=== PATIENT | male | born 1965 | race Caucasian/White ===

== ENCOUNTER → 2016-10-23 | Outpatient (CLI) | payer OTHER ==
[~2016-10-23] MED LIST: ALLO300T2 PO; ATOR-24 PO; CLOP1TAB15 PO; LEVO1TAB35 PO; LISI-526 PO; PREG1CAP70 PO; WLLXL300 PO
[2016-10-23 15:09] LABS: ALT/SGPT 50 U/L (12-78); BLOOD UREA NITROGEN 12 mg/dl (7-18); BUN/CREATININE RATIO 12.9 (10-20); CALCIUM 8.8 mg/dl (8.5-10.1); CARBON DIOXIDE 28 mmol/L (21-32); CHLORIDE 106 mmol/L (98-107); GLUCOSE 81 mg/dl (70-99); SODIUM 141 mmol/L (136-145)
[2016-10-23 15:12] LABS: CHOLESTEROL 182 mg/dl (0-200); CHOLESTEROL/HDL RATIO 5.5; HDL CHOLESTEROL 33 mg/dl; LDL CHOLESTEROL CALCULATED 119 mg/dl; TRIGLYCERIDES 151 mg/dl (0-150); VERY LOW DENSITY LIPOPROT CALC 30 mg/dl
== END | disposition home or self-care (01) ==
LOC: C.LABMFLN 09:12
PROVIDERS: ATTEND Family Medicine
DX: E78.00 Pure hypercholesterolemia, unspecified (principal); I10 Essential (primary) hypertension

== ENCOUNTER 2016-11-30 16:56 | Emergency (ER) | payer OTHER ==
[~2016-11-30] VITALS: Ht 175.3 cm; Wt 129.4 kg
[2016-11-30 17:11] VITALS: TEMP 36.5; Ht 175.3 cm; Wt 129.4 kg
[2016-11-30] MEDS ORDERED: OPTIRAY 320 IV PRN (17:30)
[2016-11-30 17:43] LABS: BASO % 0.5 %; BASO ABS # 0.05 K/uL (0-0.2); COMPLETE YES; EOS % 3.3 %; HEMATOCRIT 45.7 % (42-52); IG% 0.8 %; LYMPH % 31.7 %; LYMPH ABS # 3.22 K/uL (1.2-3.4); MEAN CORPUSCULAR HGB CONC 33.7 g/dl (32-36); NEUT % 55.7 %; PLATELET COUNT 282 K/uL (130-400); RED BLOOD COUNT 4.97 M/uL (4.7-6.1); WHITE BLOOD COUNT 10.17 K/uL (4.8-10.8)
[2016-11-30] MEDS ORDERED: ALLO300T2 PO (17:54)
[2016-11-30] MEDS ORDERED: CLOP1TAB15 PO (17:54)
[2016-11-30] MEDS ORDERED: ATOR-24 PO (17:54)
[2016-11-30] MEDS ORDERED: LISI-526 PO (17:54)
[2016-11-30] MEDS ORDERED: PREG1CAP70 PO (17:54)
[2016-11-30] MEDS ORDERED: WLLXL300 PO (17:55)
[2016-11-30 18:02] LABS: BUN/CREATININE RATIO 15.6 (10-20); CALCIUM 9.4 mg/dl (8.5-10.1); CREATININE 0.89 mg/dl (0.60-1.40); POTASSIUM 4.4 mmol/L (3.5-5.1)
[2016-11-30 18:12] LABS: ALB/GLOB RATIO 0.8 (0.9-2); THYROID STIMULATING HORMONE 3.11 uIu/ml (0.300-4.500)
--- NOTE | 2016-11-30 18:42 | DIAGNOSTIC IMAGING REPORT ---
CT SCAN OF THE NECK WITH IV CONTRAST CLINICAL HISTORY: Throat pain. Dysphagia of 2 months duration. COMPARISON STUDY: No priors. TECHNIQUE: Following the IV administration of 119 cc of Optiray 320, CT scan of the soft tissues of the neck was performed from the skull base to the upper chest. Images are reviewed in the axial, sagittal, and coronal planes. IV contrast was administered without complication. CT DOSE: 1033.00 mGy.cm FINDINGS: Pharynx: The nasopharynx, oropharynx, and laryngeal pharynx are normal in appearance. The pharyngeal airway is widely patent. There is no evidence of mass lesion. The vocal cords are symmetric. The parapharyngeal fat is well maintained. The prevertebral/retropharyngeal soft tissues are within normal limits. Small calcified tonsilliths are observed. The epiglottis is normal. Lymphadenopathy: No cervical lymphadenopathy is seen Thyroid: Normal in size and attenuation. Salivary glands: The parotid and submandibular glands are within normal limits. Brain parenchyma: The visualized brain parenchyma at the skull base is normal in appearance. Vascular structures: There is atherosclerotic calcification of the visualized thoracic aorta. The arch demonstrates bovine variant anatomy. The carotid arteries and jugular veins are widely patent bilaterally. Skeletal structures: Imaged portions of the calvarium at the skull base are within normal limits. The cervical spine appears intact. Mild cervical spondylosis is observed. Sinuses and mastoids: A retention cyst is noted in the left maxillary antrum. The remaining visualized paranasal sinuses are clear. The mastoid air cells are well pneumatized. Lung apices: Emphysematous change is identified in the upper lungs. The upper lobe lung parenchyma is clear as imaged. There are scattered subcentimeter mediastinal lymph nodes. IMPRESSION: 1. No acute abnormality is identified. 2. Emphysema. Electronically signed by: Kyree Gomez M.D. 11/30/2016 6:40 PM Dictated Date/Time: 11/30/2016 6:31 PM
[2016-11-30 18:59] VITALS: BP 162/90; PULSE 76; O2SAT 95
--- NOTE | 2016-11-30 23:32 | EMERGENCY ROOM VISIT NOTE ---
History First contact with patient: 17:15 Chief Complaint: THROAT PAIN/INJURY Stated Complaint: HARD/HURTS SWALLOWING History of Present Illness The patient is a 50 year old male who presents to the Emergency Room with complaints of pain with swallowing for the past 2 months. The patient does not report injury or trauma. He has not had fever or chills. The patient reports a history of extensive tobacco use, specifically smoking, although he did stop a few months ago. Additionally the patient does wear a C Pap at night, which uses humidified air and oxygen. The patient states that eating does exacerbate his symptoms. He did follow with his primary care physician: But states that no testing was done. The patient rates his discomfort a 5/10 and has not taken anything [id number] for his discomfort. Review of Systems More than 10 systems were reviewed and otherwise negative with the exception of history of present illness. Past Medical/Surgical History History of hypertension, dyslipidemia, gout, and stent in his leg Family History No pertinent family history Social History Smoking Status: Current Every Day Smoker Current/Historical Medications Scheduled Allopurinol (Zyloprim), 300 MG PO DAILY Atorvastatin (Lipitor), 40 MG PO QPM Bupropion HCl (Bupropion HCl Xl), 300 MG PO BID Clopidogrel (Plavix), 75 MG PO QPM Lisinopril (Prinivil), 30 MG PO DAILY Pregabalin (Lyrica), 150 MG PO TID Allergies Coded Allergies: NSAIDs (Unverified Allergy, Unknown, UNKNOWN, 11/30/16) Penicillins (Unverified Allergy, Unknown, UNKNOWN, 11/30/16) Physical Exam Vital Signs Date Time Temp Pulse Resp B/P Pulse Ox O2 Delivery O2 Flow Rate FiO2 11/30/16 18:59 76 18 162/90 95 Room Air 11/30/16 17:11 36.5 70 20 152/79 95 Room Air Pain Rating (0-10): 0 Physical Exam VITALS: Vitals are noted on the nurse's note and reviewed by myself. Vital signs stable. GENERAL: Well-developed, well-nourished, white male, who is in no acute distress and resting comfortably. Patient is cooperative with the examination. HEAD: Normocephalic atraumatic. EARS: External ear normal. External auditory canals clear, tympanic membranes pearly plummer without erythema or effusion bilaterally. EYES: Pupils equal round and reactive to light and accommodation. Conjunctivae without injection, sclerae without icterus. Extraocular movements intact. NOSE: Patent, turbinates without inflammation or discharge. MOUTH: Mucous membranes moist. Tonsils are not enlarged. Pharynx without erythema, blood, or exudate. Uvula midline. Airway patent. NECK: Supple without nuchal rigidity. No lymphadenopathy. No thyromegaly. Cervical spine is nontender. HEART: Regular rate and rhythm without murmurs gallops or rubs. LUNGS: Clear to auscultation bilaterally without wheezes, rales or rhonchi. No retractions or accessory muscle use. Medical Decision & Procedures ER Provider Diagnostic Interpretation: CT SCAN OF THE NECK WITH IV CONTRAST CLINICAL HISTORY: Throat pain. Dysphagia of 2 months duration. COMPARISON STUDY: No priors. TECHNIQUE: Following the IV administration of 119 cc of Optiray 320, CT scan of the soft tissues of the neck was performed from the skull base to the upper chest. Images are reviewed in the axial, sagittal, and coronal planes. IV contrast was administered without complication. CT DOSE: 1033.00 mGy.cm FINDINGS: Pharynx: The nasopharynx, oropharynx, and laryngeal pharynx are normal in appearance. The pharyngeal airway is widely patent. There is no evidence of mass lesion. The vocal cords are symmetric. The parapharyngeal fat is well maintained. The prevertebral/retropharyngeal soft tissues are within normal limits. Small calcified tonsilliths are observed. The epiglottis is normal. Lymphadenopathy: No cervical lymphadenopathy is seen Thyroid: Normal in size and attenuation. Salivary glands: The parotid and submandibular glands are within normal limits. Brain parenchyma: The visualized brain parenchyma at the skull base is normal in appearance. Vascular structures: There is atherosclerotic calcification of the visualized thoracic aorta. The arch demonstrates bovine variant anatomy. The carotid arteries and jugular veins are widely patent bilaterally. Skeletal structures: Imaged portions of the calvarium at the skull base are within normal limits. The cervical spine appears intact. Mild cervical spondylosis is observed. Sinuses and mastoids: A retention cyst is noted in the left maxillary antrum. The remaining visualized paranasal sinuses are clear. The mastoid air cells are well pneumatized. Lung apices: Emphysematous change is identified in the upper lungs. The upper lobe lung parenchyma is clear as imaged. There are scattered subcentimeter mediastinal lymph nodes. IMPRESSION: 1. No acute abnormality is identified. 2. Emphysema. Laboratory Results 11/30/16 17:29 Red Blood Count 4.97, Mean Corpuscular Volume 92.0, Mean Corpuscular Hemoglobin 31.0, Mean Corpuscular Hemoglobin Concent 33.7, Mean Platelet Volume 10.0, Neutrophils (%) (Auto) 55.7, Lymphocytes (%) (Auto) 31.7, Monocytes (%) (Auto) 8.0, Eosinophils (%) (Auto) 3.3, Basophils (%) (Auto) 0.5, Neutrophils # (Auto) 5.67, Lymphocytes # (Auto) 3.22, Monocytes # (Auto) 0.81, Eosinophils # (Auto) 0.34, Basophils # (Auto) 0.05 11/30/16 17:29 Test 11/30/16 17:29 White Blood Count 10.17 K/uL (4.8-10.8) Red Blood Count 4.97 M/uL (4.7-6.1) Hemoglobin 15.4 g/dL (14.0-18.0) Hematocrit 45.7 % (42-52) Mean Corpuscular Volume 92.0 fL (80-100) Mean Corpuscular Hemoglobin 31.0 pg (25-34) Mean Corpuscular Hemoglobin Concent 33.7 g/dl (32-36) Platelet Count 282 K/uL (130-400) Mean Platelet Volume 10.0 fL (7.4-10.4) Neutrophils (%) (Auto) 55.7 % Lymphocytes (%) (Auto) 31.7 % Monocytes (%) (Auto) 8.0 % Eosinophils (%) (Auto) 3.3 % Basophils (%) (Auto) 0.5 % Neutrophils # (Auto) 5.67 K/uL (1.4-6.5) Lymphocytes # (Auto) 3.22 K/uL (1.2-3.4) Monocytes # (Auto) 0.81 K/uL (0.11-0.59) Eosinophils # (Auto) 0.34 K/uL (0-0.5) Basophils # (Auto) 0.05 K/uL (0-0.2) RDW Standard Deviation 47.6 fL (36.4-46.3) RDW Coefficient of Variation 14.1 % (11.5-14.5) Immature Granulocyte % (Auto) 0.8 % Immature Granulocyte # (Auto) 0.08 K/uL (0.00-0.02) Anion Gap 7.0 mmol/L (3-11) Est Creatinine Clear Calc Drug Dose 130.8 ml/min Estimated GFR () 114.7 Estimated GFR (Non- 99.0 BUN/Creatinine Ratio 15.6 (10-20) Calcium Level 9.4 mg/dl (8.5-10.1) Total Bilirubin 0.3 mg/dl (0.2-1) Aspartate Amino Transf (AST/SGOT) 39 U/L (15-37) Alanine Aminotransferase (ALT/SGPT) 48 U/L (12-78) Alkaline Phosphatase 103 U/L (45-117) Total Protein 8.1 gm/dl (6.4-8.2) Albumin 3.7 gm/dl (3.4-5.0) Globulin 4.4 gm/dl (2.5-4.0) Albumin/Globulin Ratio 0.8 (0.9-2) Thyroid Stimulating Hormone (TSH) 3.110 uIu/ml (0.300-4.500) Free Thyroxine 0.80 ng/dl (0.80-1.60) Free Triiodothyronine 3.27 pg/ml (2.30-4.20) Monoscreen NEG (NEG) ED Course Physical exam and history were performed. Nursing notes and EMR were reviewed. Patient appears to have pain with swallowing over the past 2 months. He states his symptoms are worse over the past few days, prompting his presentation to the department. The patient does have an extensive tobacco use history, and is worried that he may have cancer. IV access was established and labs were obtained. Rapid strep was negative. CT scan was performed. The patient's blood work is as above and was reviewed. He does not have a significant elevated white blood cell count, gross anemia, bandemia, or significant electrolyte imbalance. His Monospot is negative. TSH, T3, and T4 are within normal limits. The patient's CT scan is as above and does not show acute finding such as mass or appreciable lesion. Overall I do feel the patient is stable for discharge home. His symptoms could certainly be related to his sleep apnea, but I cannot rule out an esophageal issue here in the emergency department. I do feel the patient should be followed by GI for upper endoscopy. I will provide him resources to help perform this. The patient may wish to contact his PCP, who may help with appropriate referrals. The patient was otherwise invited back to the ER with any new, worsening, or concerning symptoms. The chart was completed utilizing [employer] Speech Voice Recognition Software. Grammatical errors, random word insertions, pronoun errors, and incomplete sentences are an occasional consequence of this system due to software limitations, ambient noise, and hardware issues. Any formal questions or concerns about the content, text, or information contained within the body of this dictation should be directly addressed to the provider for clarification. . Medical Decision Differential diagnosis includes, but is not limited to: Pharyngitis, infection, foreign body, cancer, esophagitis, thrush, and others Impression Primary Impression: Odynophagia Departure Information Dispostion Home / Self-Care Condition GOOD Referrals Papa Caldera MD Forms HOME CARE DOCUMENTATION FORM, IMPORTANT VISIT INFORMATION Patient Instructions My [facility] Additional Instructions You were seen and evaluated today on an emergency basis only. This is not a substitute for, or an effort to provide, complete comprehensive medical care. It is not possible to recognize and treat all injuries or illnesses in a single emergency department visit. For this reason it is recommended that you followup with your primary physician this week for ongoing care and evaluation. We also recommend that you follow with gastroenterology for further care and management. We have provided you the information for [facility] as a convenience. You are welcome to return to the emergency department anytime with new, worsening, or concerning symptoms.
== END 2016-11-30 19:01 | disposition home or self-care (01) ==
LOC: C.EDB 16:58 → C.EDD 19:01
DX: R13.10 Dysphagia, unspecified (principal); I10 Essential (primary) hypertension; E78.5 Hyperlipidemia, unspecified; M10.9 Gout, unspecified; F17.200 Nicotine dependence, unspecified, uncomplicated; Z79.899 Other long term (current) drug therapy; Z88.0 Allergy status to penicillin; Z88.8 Allergy status to other drugs, medicaments and biological substances

== ENCOUNTER → 2017-06-06 | Outpatient (CLI) | payer OTHER ==
[2017-06-06 13:22] LABS: ALT/SGPT 46 U/L (12-78); BLOOD UREA NITROGEN 17 mg/dl (7-18); BUN/CREATININE RATIO 20.1 (10-20); CARBON DIOXIDE 27 mmol/L (21-32); CHLORIDE 104 mmol/L (98-107); CREATININE 0.86 mg/dl (0.60-1.40); GLUCOSE 104 mg/dl (70-99); POTASSIUM 3.6 mmol/L (3.5-5.1); SODIUM 138 mmol/L (136-145)
== END | disposition home or self-care (01) ==
LOC: C.LABMFLN 08:05
PROVIDERS: ATTEND Family Medicine
DX: E78.00 Pure hypercholesterolemia, unspecified (principal); I10 Essential (primary) hypertension

== ENCOUNTER 2017-06-11 20:22 | Emergency (ER) | payer OTHER ==
[~2017-06-11] VITALS: Ht 175.3 cm; Wt 133.5 kg
[~2017-06-11 20:22] MED LIST changes: -LEVO1TAB35 PO
[2017-06-11 20:44] VITALS: TEMP 36.8
[2017-06-11] MEDS ORDERED: ALBUT/IPRATROP 3MG/0.5MG NEB 3 ML VIAL INH STA (21:35)
[2017-06-11] MEDS ORDERED: METHYLPREDNISOLONE 125 MG VIAL IV STA (21:35)
[2017-06-11 21:48] VITALS: O2SAT 94; Ht 175.3 cm; Wt 133.5 kg
[2017-06-11] MEDS ORDERED: OPTIRAY 320 IV PRN (22:00)
[2017-06-11 22:33] LABS: BASO % 0.4 %; BASO ABS # 0.05 K/uL (0-0.2); COMPLETE YES; EOS % 2.5 %; HEMATOCRIT 47.1 % (42-52); IG% 0.8 %; LYMPH % 24.2 %; LYMPH ABS # 3.32 K/uL (1.2-3.4); MEAN CELL VOLUME 91.8 fL (80-100); MEAN CORPUSCULAR HEMOGLOBIN 31.4 pg (25-34); MEAN CORPUSCULAR HGB CONC 34.2 g/dl (32-36); MEAN PLATELET VOLUME 10.1 fL (7.4-10.4); MONO % 6.8 %; NEUT % 65.3 %; PLATELET COUNT 269 K/uL (130-400); RED BLOOD COUNT 5.13 M/uL (4.7-6.1); WHITE BLOOD COUNT 13.73 K/uL (4.8-10.8)
[2017-06-11 22:44] LABS: PARTIAL THROMBOPLASTIN RATIO 1.5; PROTHROMBIN TIME (PATIENT) 10.7 SECONDS (9.0-12.0)
[2017-06-11 22:50] LABS: CALCIUM 9.4 mg/dl (8.5-10.1); CREATININE 0.96 mg/dl (0.60-1.40); POTASSIUM 3.7 mmol/L (3.5-5.1)
[2017-06-11 22:55] LABS: ALB/GLOB RATIO 0.8 (0.9-2)
--- NOTE | 2017-06-11 22:57 | DIAGNOSTIC IMAGING REPORT ---
SINGLE VIEW CHEST CLINICAL HISTORY: Cough and fever. FINDINGS: An AP, portable, upright chest radiograph is obtained. No prior studies are available for comparison at the time of dictation. The examination is degraded by portable technique and patient rotation. The heart is enlarged. The pulmonary vasculature is noncongested. There is patchy airspace consolidation at the left lung base. Minimal opacities are also suggested at the right lung base. The upper lobes are clear. No large pleural effusion or pneumothorax is seen. The bony thorax is grossly intact. IMPRESSION: 1. Cardiomegaly without radiographic evidence of congestive failure. 2. There is patchy airspace consolidation at the left lung base concerning for pneumonia. Clinical correlation will be required and radiographic follow-up to resolution is recommended. 3. Airspace opacities are also questioned at the right lung base. Electronically signed by: Kyree Gomez M.D. 06/11/2017 10:56 PM Dictated Date/Time: 06/11/2017 10:55 PM
[2017-06-11] MEDS ORDERED: LEVAQUIN 750MG / 150ML D5W IV STA (23:18)
[2017-06-11 23:51] LABS: INFLUENZA A PCR Neg for Influ A (NEG); INFLUENZA B PCR Neg for Influ B (NEG)
[2017-06-12] MEDS ORDERED: ALBUTEROL HFA 8 GM INHALER INH STA (00:23)
--- NOTE | 2017-06-12 01:33 | EMERGENCY ROOM VISIT NOTE ---
ED Visit Note First contact with patient: 21:23 Pt seen and examined at bedside. Patient aware of all results. No hypoxia noted and no increased WOB. Aware of need for close follow-up, symptoms to watch return for, use of antibiotics, he verbalized understanding was agreeable with plan.
[2017-06-12] MEDS ORDERED: LEVO1TAB35 PO (01:48)
[2017-06-12 02:10] VITALS: BP 150/75; PULSE 86; O2SAT 95
--- NOTE | 2017-06-12 06:48 | DIAGNOSTIC IMAGING REPORT ---
CT SOFT TISSUE NECK WITH CT DOSE: 778.79 mGy.cm CLINICAL HISTORY: left sided facial pain/fever TECHNIQUE: Helical images were acquired during intravenous administration of 94 cc of Optiray 320. A dose lowering technique was utilized adhering to the principles of ALARA. COMPARISON STUDY: 11/30/2016 FINDINGS: The visualized portions of the lung apices are unremarkable. No thyroid masses are visualized. No salivary gland masses are visualized. There are no pathologically enlarged cervical lymph nodes. No necrotic nodes are evident. There are no fluid collections suspicious for abscess. There is no evidence of airway compromise. There is nonspecific epiglottic thickening. Direct visualization might be considered in follow-up. There is a right maxillary molar dental apical abscess IMPRESSION: 1. No evidence of soft tissue abscess 2. Right maxillary molar dental apical abscess. Nonemergent dental consultation is recommended 3. Nonspecific epiglottic thickening. Direct visualization might be considered in follow-up. Electronically signed by: Omar Matos M.D. 06/12/2017 6:47 AM Dictated Date/Time: 06/12/2017 6:41 AM
--- NOTE | 2017-06-12 07:31 | EMERGENCY ROOM VISIT NOTE ---
History First contact with patient: 21:23 Chief Complaint: INFECTION Stated Complaint: INFECTION IN MOUTH, JAW, EAR L SIDE Nursing Triage Summary: PT has infection to left jaw for about 1 month PT is on second round of clindamycin for this. PT states "I think it is getting worse, my throat is tight now." PT has SOB "sometimes when I cough" History of Present Illness The patient is a 51 year old male who presents to the Emergency Room with complaints of left-sided facial pain and swelling for the past 2 weeks that is steadily getting worse now complaining of fevers cough and shortness of breath. Patient continues to smoke. Pain currently 5 out of 10. Nothing makes it better or worse. It radiates to his ear. He described as throbbing. He saw a dentist and has been on clindamycin since May 20. He has an appointment next month with oral surgery. He saw his family care doctor Friday of this week and had blood work done. He is currently on clindamycin 300 mg 4 times a day. This was recently increased by the family care doctor. No temperature was taken. He took Tylenol earlier today. Patient denies chest pain, sore throat, headache, neck stiffness, abdominal pain, earache, vomiting, diarrhea. He had an EGD done earlier this year that was negative per patient. This is done at [facility]. He cannot recall the doctor's name. Review of Systems See HPI for pertinent positives & negatives. A total of 10 systems reviewed and were otherwise negative. Past Medical/Surgical History Hypertension, hyperlipidemia, sleep apnea, stent in leg Social History Smoking Status: Current Some Day Smoker Drug Use: none Current/Historical Medications Scheduled Allopurinol (Zyloprim), 300 MG PO DAILY Atorvastatin (Lipitor), 40 MG PO QPM Bupropion HCl (Bupropion HCl Xl), 300 MG PO BID Clopidogrel (Plavix), 75 MG PO QPM Levofloxacin (Levaquin), 750 MG PO DAILY Lisinopril (Prinivil), 30 MG PO DAILY Pregabalin (Lyrica), 150 MG PO TID Physical Exam Vital Signs Date Time Temp Pulse Resp B/P (MAP) Pulse Ox O2 Delivery O2 Flow Rate FiO2 06/12/17 02:10 86 20 150/75 95 06/12/17 01:30 81 20 162/85 95 Nasal Cannula 2.0 06/12/17 01:19 89 12/7/17 00:05 86 20 159/88 93 Room Air 06/11/17 22:34 88 17 169/86 92 Room Air 2.0 06/11/17 22:02 90 06/11/17 21:48 94 Nasal Cannula 2.0 06/11/17 20:44 36.8 93 18 176/91 92 Room Air Physical Exam VITALS: Vitals are noted on the nurse's note and reviewed by myself. Vital signs stable. GENERAL: White male coughing and spitting up phlegm that is yellow clear in nature in front of me, in no acute distress, nondiaphoretic, well-developed well -nourished. SKIN: The skin was without rashes, erythema, edema, or bruising. There is no tenting of the skin. Capillary reflex less than 2 seconds. HEAD: Normocephalic atraumatic. EARS: External auditory canals clear, tympanic membranes pearly plummer without erythema or effusion bilaterally. EYES: Pupils equal round and reactive to light and accommodation. Conjunctivae without injection, sclerae without icterus. Extraocular movements intact. NOSE: Patent, turbinates without inflammation or discharge. No sinus tenderness. MOUTH: Mucous membranes moist. Pharynx without erythema or exudate. Uvula midline. Airway patent. Tongue does not deviate. Dental exam: Multiple missing teeth with dental decay without palpable abscess. No Ludwigs angina NECK: Supple without nuchal rigidity. No lymphadenopathy. No thyromegaly. Cervical spine is nontender. No JVD. HEART: Regular rate and rhythm LUNGS: Mild diffuse end expiratory wheezes, without rales or rhonchi. No retractions or accessory muscle use. ABDOMEN: Positive bowel sounds x 4. Normal tympanic percussion. Soft, nontender, without masses or organomegaly. Lawson sign negative. No guarding or rebound tenderness. MUSCULOSKELETAL: No muscle atrophy, erythema, noted. NEURO: Patient was alert and oriented to person place and time. Normal sensation to light and sharp touch. No focal neurological deficits. Medical Decision & Procedures Laboratory Results 06/11/17 22:17 Red Blood Count 5.13, Mean Corpuscular Volume 91.8, Mean Corpuscular Hemoglobin 31.4, Mean Corpuscular Hemoglobin Concent 34.2, Mean Platelet Volume 10.1, Neutrophils (%) (Auto) 65.3, Lymphocytes (%) (Auto) 24.2, Monocytes (%) (Auto) 6.8, Eosinophils (%) (Auto) 2.5, Basophils (%) (Auto) 0.4, Neutrophils # (Auto) 8.97, Lymphocytes # (Auto) 3.32, Monocytes # (Auto) 0.93, Eosinophils # (Auto) 0.35, Basophils # (Auto) 0.05 06/11/17 22:17 Test 06/11/17 22:06 06/11/17 22:17 06/11/17 22:25 06/12/17 00:50 Influenza Type A (RT-PCR) Neg for Influ A (NEG) Influenza Type A Antigen Neg for Influ A (NEG) Influenza Type B Antigen Neg for Influ B (NEG) Influenza Type B (RT-PCR) Neg for Influ B (NEG) White Blood Count 13.73 K/uL (4.8-10.8) Red Blood Count 5.13 M/uL (4.7-6.1) Hemoglobin 16.1 g/dL (14.0-18.0) Hematocrit 47.1 % (42-52) Mean Corpuscular Volume 91.8 fL (80-100) Mean Corpuscular Hemoglobin 31.4 pg (25-34) Mean Corpuscular Hemoglobin Concent 34.2 g/dl (32-36) Platelet Count 269 K/uL (130-400) Mean Platelet Volume 10.1 fL (7.4-10.4) Neutrophils (%) (Auto) 65.3 % Lymphocytes (%) (Auto) 24.2 % Monocytes (%) (Auto) 6.8 % Eosinophils (%) (Auto) 2.5 % Basophils (%) (Auto) 0.4 % Neutrophils # (Auto) 8.97 K/uL (1.4-6.5) Lymphocytes # (Auto) 3.32 K/uL (1.2-3.4) Monocytes # (Auto) 0.93 K/uL (0.11-0.59) Eosinophils # (Auto) 0.35 K/uL (0-0.5) Basophils # (Auto) 0.05 K/uL (0-0.2) RDW Standard Deviation 45.4 fL (36.4-46.3) RDW Coefficient of Variation 13.5 % (11.5-14.5) Immature Granulocyte % (Auto) 0.8 % Immature Granulocyte # (Auto) 0.11 K/uL (0.00-0.02) Prothrombin Time 10.7 SECONDS (9.0-12.0) Prothromb Time International Ratio 1.0 (0.9-1.1) Activated Partial Thromboplast Time 39.3 SECONDS (21.0-31.0) Partial Thromboplastin Ratio 1.5 Anion Gap 6.0 mmol/L (3-11) Est Creatinine Clear Calc Drug Dose 122.0 ml/min Estimated GFR () 104.9 Estimated GFR (Non- 90.5 BUN/Creatinine Ratio 16.0 (10-20) Calcium Level 9.4 mg/dl (8.5-10.1) Total Bilirubin 0.6 mg/dl (0.2-1) Aspartate Amino Transf (AST/SGOT) 38 U/L (15-37) Alanine Aminotransferase (ALT/SGPT) 55 U/L (12-78) Alkaline Phosphatase 101 U/L (45-117) Troponin I 0.030 ng/ml (0-0.045) Total Protein 8.1 gm/dl (6.4-8.2) Albumin 3.6 gm/dl (3.4-5.0) Globulin 4.5 gm/dl (2.5-4.0) Albumin/Globulin Ratio 0.8 (0.9-2) Bedside Lactic Acid Venous 0.91 mmol/L (0.90-1.70) Bedside Troponin I < 0.030 ng/ml (0-0.045) Medications Administered Medications (Trade) Dose Ordered Sig/Kristen Route Start Time Stop Time Status Last Admin Dose Admin Albuterol/ Ipratropium (Duoneb) 3 ml NOW STAT INH 06/11/17 21:35 06/11/17 21:38 DC 06/11/17 22:03 3 ML Methylprednisolone Sodium Succinate (Solu-Medrol IV) 125 mg NOW STAT IV 06/11/17 21:35 06/11/17 21:38 DC 06/11/17 22:03 125 MG Levofloxacin (Levaquin / D5W) 750 mg NOW STAT IV 06/11/17 23:18 06/11/17 23:19 DC 06/12/17 00:04 750 MG Albuterol (Ventolin Hfa Inhaler) 2 puffs ONE STAT INH 06/12/17 00:23 06/12/17 00:24 DC 06/12/17 00:52 2 PUFFS ED Course Prior records/ancillary studies reviewed. Triage Nursing notes reviewed. The patient's history was concerning for respiratory difficulties with ongoing dental pain. Differential diagnosis: Etiologies such as dental infection, Derrek's angina, infections, reactive airway disease, pneumonia, pneumothorax, COPD, CHF, cardiac ischemia, pulmonary embolism, musculoskeletal, gastrointestinal, as well as others were entertained. Physical examination: As above. ER treatment provided: Nebulizer, Solu-Medrol On reassessment the patient felt better. Diagnostic interpretation by me: The electrocardiogram was normal sinus, normal intervals, no acute ST-T wave changes, rate of 84. Impression normal sinus rhythm interpreted by myself The labs revealed stable H&H. Leukocytosis. Negative lactic acid Negative flu. Negative troponin 2 Imaging studies: Chest x-ray SINGLE VIEW CHEST CLINICAL HISTORY: Cough and fever. FINDINGS: An AP, portable, upright chest radiograph is obtained. No prior studies are available for comparison at the time of dictation. The examination is degraded by portable technique and patient rotation. The heart is enlarged. The pulmonary vasculature is noncongested. There is patchy airspace consolidation at the left lung base. Minimal opacities are also suggested at the right lung base. The upper lobes are clear. No large pleural effusion or pneumothorax is seen. The bony thorax is grossly intact. IMPRESSION: 1. Cardiomegaly without radiographic evidence of congestive failure. 2. There is patchy airspace consolidation at the left lung base concerning for pneumonia. Clinical correlation will be required and radiographic follow-up to resolution is recommended. 3. Airspace opacities are also questioned at the right lung base. Electronically signed by: Kyree Gomez M.D. 06/11/2017 10:56 PM Dictated Date/Time: 06/11/2017 10:[address] negative for abscess per stat radiology This appears to be consistent with pneumonia. Patient's been on clindamycin for dental problems. He had no abscess on CT imaging. Patient's been coughing so x-ray was ordered and concerns for pneumonia. Patient was offered admission and declined. He states he'll see his family care doctor tomorrow. He was placed on Levaquin. He has anaphylaxis to penicillin. Patient was not hypoxic. Stable vital signs. He was well-appearing. He was advised to follow- up with his oral surgeon as scheduled for his ongoing dental issue. Patient is advised to return to the ER immediately for fevers, difficulty breathing, neck swelling, worsening signs or symptoms or as needed. By the evaluation outlined above emergent etiologies such as CHF, cardiac ischemia, pulmonary embolism, reactive airway disease, pneumothorax, musculoskeletal, serious bacterial infections, as well as others were deemed relatively unlikely. The pt informed about the findings as listed above. All questions were answered and pleased with the treatment. Return instructions were outlined and the patient was discharged in stable condition. Outpatient prescription management: Levaquin Referral: The patient was referred back to their primary care physician and oral surgery for follow-up in 2 to 3 days for a recheck of the current condition. Case reviewed with my attending Medical Decision As above Medication Reconcilliation Current Medication List: was personally reviewed by me Blood Pressure Screening Patient's blood pressure: Elevated blood pressure Blood pressure disposition: Referred to PCP Impression Primary Impression: Pneumonia involving left lung Additional Impression: Pain, dental Departure Information Prescriptions Levofloxacin (Levaquin) 750 Mg Tab 750 MG PO DAILY for 5 Days, #5 TAB Prov: Lupe Otoole ., HARPAL 06/12/17 Referrals Gio Hernández M.D. (PCP) Patient Instructions My [facility] Problem Qualifiers Primary Impression: Pneumonia involving left lung Pneumonia type: due to unspecified organism Lung location: lower lobe of lung Qualified Codes: J18.1 - Lobar pneumonia, unspecified organism
== END 2017-06-12 02:12 | disposition home or self-care (01) ==
LOC: C.EDB 20:24 → C.EDA 06-12 02:12
DX: J18.9 Pneumonia, unspecified organism (principal); K08.89 Other specified disorders of teeth and supporting structures; I10 Essential (primary) hypertension; E78.5 Hyperlipidemia, unspecified; G47.30 Sleep apnea, unspecified; F17.200 Nicotine dependence, unspecified, uncomplicated; Z79.899 Other long term (current) drug therapy

== ENCOUNTER 2017-06-25 08:37 | Day surgery (SDC) | payer OTHER ==
[2017-06-23 09:54] VITALS: BMI 43.0
--- NOTE | 2017-06-23 10:29 | PAT Medication Instructions ---
Service Date Jun 23, 2017. Current Home Medication List Acetaminophen (Tylenol), 1,000 MG PO PRN Allopurinol (Zyloprim), 300 MG PO QAM Atorvastatin (Lipitor), 40 MG PO QPM Bupropion (Wellbutrin Sr), 200 MG PO QAM Clindamycin Hcl (Cleocin), 300 MG PO Q6H Clopidogrel (Plavix), 75 MG PO QPM Fluticasone Propionate (Nasal) (Flonase Allergy Relief), 2 SPRAYS INTNAS HS Home O2 Therapy (Oxygen), 2 LITERS NA HS Hydrochlorothiazide (Hctz), 12.5 MG PO QAM Lisinopril (Prinivil), 30 MG PO QAM Niacin (Niacin), 500 MG PO QPM Pregabalin (Lyrica), 150 MG PO TID Medication Instructions For Your Scheduled Surgery - Hold the following medications 5 days prior to surgery per prescribing physician's instructions: Clopidogrel (Plavix), 75 MG PO QPM - Hold the following medications the morning of surgery: Hydrochlorothiazide (Hctz), 12.5 MG PO QAM Lisinopril (Prinivil), 30 MG PO QAM - Take the following medications the morning of surgery with a sip of water OTHERWISE NOTHING TO EAT OR DRINK AFTER MIDNIGHT: Pregabalin (Lyrica), 150 MG PO TID Allopurinol (Zyloprim), 300 MG PO QAM Bupropion (Wellbutrin Sr), 200 MG PO QAM Acetaminophen (Tylenol), 1,000 MG PO PRN (may take if needed up to 4 hours prior to surgery) - Take the following medications as scheduled the night before surgery: Fluticasone Propionate (Nasal) (Flonase Allergy Relief), 2 SPRAYS INTNAS HS Pregabalin (Lyrica), 150 MG PO TID Atorvastatin (Lipitor), 40 MG PO QPM Acetaminophen (Tylenol), 1,000 MG PO PRN - DO NOT take the following medications the night before surgery: Niacin (Niacin), 500 MG PO QPM If you have any questions please call us at [phone] or [phone] or [phone]
[2017-06-23 10:52] LABS: BASO % 0.3 %; BASO ABS # 0.04 K/uL (0-0.2); EOS % 2.7 %; EOS ABS # 0.33 K/uL (0-0.5); HEMATOCRIT 44.6 % (42-52); HEMOGLOBIN 15.1 g/dL (14.0-18.0); IG# 0.22 K/uL (0.00-0.02); LYMPH % 26.8 %; LYMPH ABS # 3.28 K/uL (1.2-3.4); MEAN CELL VOLUME 93.1 fL (80-100); MEAN CORPUSCULAR HEMOGLOBIN 31.5 pg (25-34); MEAN CORPUSCULAR HGB CONC 33.9 g/dl (32-36); MONO % 5.8 %; MONO ABS # 0.71 K/uL (0.11-0.59); NEUT % 62.6 %; NEUT ABS # 7.64 K/uL (1.4-6.5); PLATELET COUNT 239 K/uL (130-400); RED CELL DISTRIBUTION WIDTH SD 47.6 fL (36.4-46.3); WHITE BLOOD COUNT 12.22 K/uL (4.8-10.8)
--- NOTE | 2017-06-23 11:11 | DIAGNOSTIC IMAGING REPORT ---
CHEST 2 VIEWS ROUTINE HISTORY: pre-op, recent pneumonia COMPARISON: Chest 06/11/2017. FINDINGS: No focal lung consolidations to suggest pneumonia. No evidence for pulmonary edema. The heart is top normal in size. No pleural effusions. No pneumothorax. Small linear scarlike density seen at the left lung base. IMPRESSION: No acute process. Electronically signed by: Marquez Malhotra M.D. 06/23/2017 11:09 AM Dictated Date/Time: 06/23/2017 11:07 AM
[~2017-06-25] VITALS: Ht 175.3 cm; Wt 132.6 kg
[~2017-06-25 08:37] MED LIST changes: +ACET-1256 PO; +BUPR200T2 PO; +CLIN300C2 PO; +FLUT0.15; +HYDR12.56 PO; +LACTATED RINGER'S 1000ML 1,000 ML IV SCH; +NIAC500T11 PO; +OXGN; -WLLXL300 PO
[2017-06-25 09:14] VITALS: BP 139/64; PULSE 84; TEMP 36.7; O2SAT 94; Ht 175.3 cm; Wt 132.6 kg
[2017-06-25] MEDS ORDERED: FENTANYL CITRATE INJ 50 MCG/1 ML 2 ML VIAL ONE (10:09)
[2017-06-25] MEDS ORDERED: MIDAZOLAM HCL 1 MG/ML 2ML VIAL ONE (10:09)
--- NOTE | 2017-06-25 10:18 | History & Physical Bridge Note ---
H&P Re-Evaluation Bridge Note: I have examined the patient, reviewed the History & Physical and in the interval since the performance of the History & Physical I have noted the following changes of clinical significance: No changes noted
[2017-06-25] MEDS ORDERED: EpINEphrine HCL INJ 1 MG/ML 5ML SYRINGE ONE (10:53)
[2017-06-25] MEDS ORDERED: DEXAMETHASONE SOD INJ 4 MG/ML VIAL ONE (11:21)
[2017-06-25] MEDS ORDERED: SUCCINYLCHOLINE CHLORIDE 20 MG/ML 10 ML VIAL IV ONE (11:21)
[2017-06-25] MEDS ORDERED: PROPOFOL IV EMULSION 10 MG/ML 20 ML VIAL IV ONE ×2 (11:21→11:24)
[2017-06-25] MEDS ORDERED: ONDANSETRON INJ 2 MG/ML 2 ML VIAL ONE (11:21)
[2017-06-25] MEDS ORDERED: LIDOCAINE HCL 2% 2 ML VIAL (20MG/ML) ONE (11:21)
[2017-06-25] MEDS ORDERED: LARYING-O-JET KIT (LTA) ONE (11:21)
--- NOTE | 2017-06-25 11:32 | [facility] Operative Report ---
Operative Report Operative Date Jun 25, 2017. Pre-Operative Diagnosis EPIGLOTTIC MASS Post-Operative Diagnosis SAME Procedure(s) Performed DIRECT MICROLARYNGOSCOPY WITH BIOPSIES OF THE EPIGLOTTIS Surgeon LISY Card Scraper Surgeon(s) NONE Estimated Blood Loss 5ML Findings R>L EPIGLOTTIC MASS WITH EXOPHYTIC TISSUE Specimens EPIGLOTTIC TISSUE FOR FROZEN, PERMANENT, AND GRAM STAIN/C&S/FUNGAL CX I attest to the content of the Intraoperative Record and any orders documented therein. Any exceptions are noted below.
--- NOTE | 2017-06-25 11:34 | Discharge Instructions ---
Discharge Instructions Date of Service Jun 25, 2017. Admission Reason for Admission: Mass Of Epiglottis Discharge Discharge Diagnosis / Problem: SAME Discharge Goals Goal(s): Diagnostic testing Activity Recommendations Activity Limitations: as noted below NO DRIVING WHILE ON NORCO . Current Hospital Diet Patient's current hospital diet: Regular Diet Discharge Diet Recommended Diet: Regular Diet Procedures Procedures Performed: DIRECT MICROLARYNGOSCOPY WITH BIOPSIES OF THE EPIGLOTTIS Pending Studies Studies pending at discharge: no Medical Emergencies . Who to Call and When: Medical Emergencies: If at any time you feel your situation is an emergency, please call 911 immediately. . Non-Emergent Contact Non-Emergency issues call your: Surgeon . . "Provider Documentation" section prepared by Gio Barrera. . VTE Core Measure Inpt VTE Proph given/why not?: SCD's
[2017-06-25] MEDS ORDERED: ACETAMINOPHEN/HYDROCODONE ELIX 15 ML/CUP UDP PO PRN (11:45)
[2017-06-25] MEDS ORDERED: ONDANSETRON INJ 2 MG/ML 2 ML VIAL IV PRN ×2 (11:45→12:30)
--- NOTE | 2017-06-25 12:18 | OPERATIVE REPORT ---
DATE OF OPERATION: 06/25/2017 PREOPERATIVE DIAGNOSIS: Epiglottic mass. POSTOPERATIVE DIAGNOSIS: Epiglottic mass. PROCEDURE: Direct microlaryngoscopy with biopsy of epiglottic mass. SURGEON: Dr. Gio Barrera. HOTEL GENERAL MANAGER: General endotracheal. ESTIMATED BLOOD LOSS: 5 mL FINDINGS: 1. Right greater than left epiglottic mass with severe thickening of the mucosa and exophytic nature of the mass involving both the vallecular and laryngeal surface of the epiglottis. 2. 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 SPECIMENS: Epiglottic tissue for frozen section, permanent pathological assessment, Gram stain, culture and sensitivity, and fungal cultures. COMPLICATIONS: None. INDICATIONS FOR THE PROCEDURE: The patient is a 51-year-old male with a 7-month history of progressive odynophagia and dysphagia who has been seen several times in the Emergency Room and had 2 CT scans of the neck, one in November and one in June and over the interim, there was some thickening of the epiglottis worse on the right hand side compared to the left hand side and the patient was referred to [facility] for further evaluation and management. The patient does have a smoking and drinking history and on flexible laryngoscopy was found to have an epiglottic mass with severe thickening of the epiglottis and exophytic tissue involving the right greater than left epiglottis in both of the vallecular portion and the laryngeal surface of the epiglottis. There was normal bilateral true vocal fold mobility to the midline. There are no other abnormalities or cervical lymphadenopathy. The patient presents for the above-mentioned procedure on an outpatient elective basis. DESCRIPTION OF PROCEDURE: After informed consent had been obtained from the patient, the patient was in the operating room and placed on the operating room table in supine position. Monitors were placed and after induction of general endotracheal anesthesia, the table was turned 90 degrees and the patient was placed in the sniffing position. A tooth guard was placed over the maxillary dentition and then the operating microscope was inserted and used to inspect the oral cavity, oropharynx, hypopharynx, and larynx. Intraoperative findings were a very large epiglottic mass involving the vallecular and laryngeal surface of the epiglottis, being most pronounced on the right hand side, but also extending across the midline to the involved left hand side as well. There were no other tumors or masses. Multiple biopsies were taken with cup forceps and sent off for frozen pathological assessment, permanent pathological assessment, Gram stain, culture and sensitivity, and fungal cultures. A frozen section diagnosis revealed severe dysplasia with the inability of the pathologist to call carcinoma on the specimens received. Multiple biopsies were taken down to the level of the epiglottic cartilage. No Further biopsies were taken and we will wait on the permanent pathological specimen. An orogastric tube was then placed and the stomach was suctioned free of air and stomach contents. An LTA had been administered by anesthesia before intubation. All the instrumentation was removed from the patient. The patient tolerated the procedure well. There were no apparent complications. The patient was extubated and transferred to the recovery room in stable condition. I attest to the content of the Intraoperative Record and any orders documented therein. Any exception s are noted below.
[2017-06-25] MEDS ORDERED: FENTANYL CITRATE INJ 50 MCG/1 ML 2 ML VIAL IV PRN (12:30)
[2017-06-25] MEDS ORDERED: ATROPINE SULFATE 0.1 MG/ML 5ML SYR IV PRN (12:30)
--- NOTE | 2017-06-25 12:39 | Anesthesiology Progress Note ---
Anesthesia Post Op Note Date & Time Jun 25, 2017 at 12:39 Vital Signs Pain Intensity: 0 Vital Signs Past 12 Hours Date Time Temp Pulse Resp B/P (MAP) Pulse Ox O2 Delivery O2 Flow Rate FiO2 06/25/17 12:35 36.2 82 20 139/79 92 Nasal Cannula 4 06/25/17 12:30 92 20 146/61 92 Nasal Cannula 4 06/25/17 12:20 81 20 131/65 92 Nasal Cannula 4 06/25/17 12:10 81 14 129/75 97 Oxymask 10 06/25/17 12:00 36.2 85 20 150/67 94 Oxymask 10 06/25/17 09:14 36.7 84 20 139/64 (89) 94 Room Air Notes Mental Status: alert / awake / arousable, participated in evaluation Pt Amnestic to Procedure: Yes Nausea / Vomiting: adequately controlled Pain: adequately controlled Airway Patency, RR, SpO2: stable & adequate BP & HR: stable & adequate Hydration State: stable & adequate Anesthetic Complications: no major complications apparent
[2017-06-25 12:45] VITALS: BP 131/80; PULSE 83; TEMP 37; O2SAT 92
[2017-06-25 13:15] VITALS: BP 145/68; PULSE 79; TEMP 36.7; O2SAT 94
== END 2017-06-25 13:30 | disposition home or self-care (01) ==
LOC: C.ACU 08:37
DX: J38.7 Other diseases of larynx (principal); F17.200 Nicotine dependence, unspecified, uncomplicated; F32.9 Major depressive disorder, single episode, unspecified; M10.9 Gout, unspecified; E78.01 Familial hypercholesterolemia; I10 Essential (primary) hypertension; G54.7 Phantom limb syndrome without pain; E66.9 Obesity, unspecified; G47.33 Obstructive sleep apnea (adult) (pediatric); Z89.432 Acquired absence of left foot; Z90.49 Acquired absence of other specified parts of digestive tract; Z90.89 Acquired absence of other organs; Z82.49 Family history of ischemic heart disease and other diseases of the circulatory system; Z82.5 Family history of asthma and other chronic lower respiratory diseases; Z82.2 Family history of deafness and hearing loss; Z83.3 Family history of diabetes mellitus; Z82.3 Family history of stroke; Z83.2 Family history of diseases of the blood and blood-forming organs and certain disorders involving the immune mechanism; Z84.1 Family history of disorders of kidney and ureter; Z88.0 Allergy status to penicillin; Z87.01 Personal history of pneumonia (recurrent)

== ENCOUNTER → 2017-07-02 | Outpatient (CLI) | payer OTHER ==
[~2017-07-02] MED LIST changes: -CLOP1TAB15 PO; -LACTATED RINGER'S 1000ML 1,000 ML IV SCH
--- NOTE | 2017-07-02 09:19 | DIAGNOSTIC IMAGING REPORT ---
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 Non-contrast CT imaging was performed over the same range without breath-hold for attenuation correction of PET images and anatomic correlation, but not for primary interpretation as it is not of standard diagnostic quality. CT DOSE: COMPARISON: CT soft tissue neck 06/11/2017 FINDINGS: HEAD AND NECK: FDG avid soft tissue mass left central epiglottic and base of the epiglottic region. SUVs extend to 7. Maximum dimensions are prior study 1.4 x 1.0 cm. Moderate increase in metabolic activity of the tongue possibly due to patient oral motility. An FDG avid focus having SUVs to 4 is noted at the left lateral aspect of the hyoid bone. No definite CT correlate is present. No significant herbert pathology is identified. No additional focus of increased activity is seen. CHEST: There is no FDG-avid disease in the chest. There is no axillary, mediastinal, or hilar lymphadenopathy. There is no pleural or pericardial effusion. There is no air-space disease or suspicious lung nodule. 4 mm nodular density right lung base with an adjacent 3 mm nodular density best seen transaxial image 100. These are too small to confirm or exclude a significant nodular process. Calcific granuloma left base considered benign. No significant mediastinal or hilar metabolically active adenopathy. ABDOMEN/PELVIS: Below the diaphragm, tracer is distributed physiologically in the gastrointestinal and genitourinary tracts. There is no significant lymphadenopathy and no FDG-avid disease. MUSCULOSKELETAL: There is no FDG-avid or destructive bone lesion. IMPRESSION: 1. Soft tissue lesion left base of the epiglottis on the left demonstrating intense FDG activity. 2. Possible additional focus of increased metabolic activity left lateral hyoid bone. There is no CT correlate. 3. Remainder the PET scan is negative for metastatic change. 4. The epiglottic lesion is presumably neoplastic. 5. Several small sub-5 mm nodules right lung base 2 small 2 quantify although follow-up at a later date is warranted The above report was generated using voice recognition software. It may contain grammatical, syntax or spelling errors. Electronically signed by: Pierre Benson M.D. 07/02/2017 9:17 AM Dictated Date/Time: 07/02/2017 9:07 AM
== END | disposition home or self-care (01) ==
LOC: C.PET 06:44
DX: C32.1 Malignant neoplasm of supraglottis (principal); C79.89 Secondary malignant neoplasm of other specified sites; R91.8 Other nonspecific abnormal finding of lung field

== ENCOUNTER → 2018-01-28 | Outpatient (CLI) | payer OTHER ==
[~2018-01-28] MED LIST changes: -CLIN300C2 PO
--- NOTE | 2018-01-28 13:11 | DIAGNOSTIC IMAGING REPORT ---
PET/CT SKULL-THIGH CLINICAL HISTORY: Epiglottic carcinoma. COMPARISON STUDY: 07/02/2017 FINDINGS: The patient was injected with 13.1 mCi of F 18 labeled FDG. Following the standard induction phase, PET/CT scanning was performed from the skull base the upper thigh region. A separate table acquisitions of the head and neck was also acquired. Activity within the brain is felt to be within normal limits. Within the neck, there is diffuse glottic and supraglottic edema with asymmetric right anterolateral supraglottic soft tissue. The diffuse edema may be secondary to radiation therapy. There are foci of asymmetric increased FDG activity within the left periglottic soft tissues with SUV maximum of 5.1. There is increased activity at the level of vocal cords with SUV maximum of 5.4. A discrete vocal cord lesion is not visualized. Within the chest, there is no pathologic herbert activity. There has been interval development of an area of consolidation/volume loss within the right middle lobe. This is FDG avid with SUV maximum of 3.8. This is likely infectious. Follow-up is recommended. Within the abdomen and pelvis, there is physiologic urinary tract and bowel activity. There is no pathologic hepatic activity. There is no pathologic herbert activity. There is no pathologic adrenal gland activity. There is no pathologic skeletal activity. IMPRESSION: 1. Interval development of diffuse glottic and supraglottic edema with an element of airway narrowing. This may be secondary to radiation therapy. 2. Persistent but diminished foci of increased FDG activity within the left periglottic soft tissues with a current SUV maximum of 5.1. 3. No discrete pathologic herbert activity within the neck chest abdomen or pelvis 4. Interval development of right middle lobe consolidation and volume loss.. This is FDG avid and likely on an infectious basis. Electronically signed by: Omar Matos M.D. 01/28/2018 1:10 PM Dictated Date/Time: 01/28/2018 12:47 PM
== END | disposition home or self-care (01) ==
LOC: C.PET 09:25
DX: C32.1 Malignant neoplasm of supraglottis (principal)